=== PATIENT | male | born 1990 | race Two or more races ===

== ENCOUNTER 2024-07-03 05:22 | Emergency (ER) | payer OTHER ==
[~2024-07-03] VITALS: Ht 180.3 cm; Wt 108.9 kg
[2024-07-03] MEDS ORDERED: CLINDAMYCIN PHOSPHATE 150 MG/ML (900mg) IV STA (06:35)
[2024-07-03] MEDS ORDERED: DEXAMETHASONE SODIUM PHOSPHATE 4 MG/ML VIAL IV STA (06:35)
[2024-07-03] MEDS ORDERED: KETOROLAC TROMETHAMINE 30 MG VIAL IV STA (06:35)
[2024-07-03] MEDS ORDERED: DEXAMETHASONE SODIUM PHOSPHATE 4 MG/ML VIAL ONE (07:35)
[2024-07-03] MEDS ORDERED: KETOROLAC TROMETHAMINE 30 MG VIAL ONE (07:35)
[2024-07-03] MEDS ORDERED: CLINDAMYCIN PHOSPHATE 150 MG/ML (900mg) ONE (07:35)
== END 2024-07-03 09:19 | disposition home or self-care (01) ==
LOC: ER 05:24
DX: K05.10 Chronic gingivitis, plaque induced (principal); K05.219 Aggressive periodontitis, localized, unspecified severity